=== PATIENT | female | born 1965 | race Caucasian/White ===

== ENCOUNTER → 2017-02-25 | Outpatient (CLI) | payer OTHER ==
--- NOTE | 2017-02-25 10:40 | MM ---
Reason for exam: additional evaluation requested from prior study. Last mammogram was performed 1 year ago. History: Patient is postmenopausal and has history of high-risk lesion on a previous biopsy at age 49. Family history of breast cancer in maternal aunt and breast cancer in mother at age 69. Benign MG pre op needle loc LT of the left breast, February 03, 2015. High risk MG stereo VAD BX LT of the left breast, January 25, 2015. US discontinued breast bx LT of the left breast, January 25, 2015. Benign cyst aspiration of the left breast, 2009. Took hormonal contraceptives for 12 years beginning at age 18. Physical Findings: Nurse did not find any significant physical abnormalities on exam. MG Diagnostic Mammo w CAD MIGUEL Bilateral CC, MLO, and LM view(s) were taken. CC with magnification and LM with magnification view(s) were taken of the right breast. Spot compression CC and spot compression MLO view(s) were taken of the left breast. Prior study comparison: February 20, 2016, bilateral MG diagnostic mammo w CAD MIGUEL. August 01, 2015, left breast MG 3d diag mammo w/cad LT. December 16, 2013, CAD bilateral diagnostic mammogram. The breast tissue is heterogeneously dense. This may lower the sensitivity of mammography. Finding #1: Architectural distortion in the upper outer quadrant of the left breast consistent with known lumpectomy. Finding #2: There are typically benign round, linear, grouped and diffuse/scattered calcifications in both breasts, greater in the right breast. Asymmetric breast tissue in the left breast is stable. Group of indeterminate anterior calcifications middle posterior depth in the right breast. New finding and increase in number of calcifications since February 20, 2016, August 01, 2015, and December 16, 2013. These results were verbally communicated with the patient and result sheet given to the patient on 02/25/17. ASSESSMENT: Suspicious, BI-RAD 4 RECOMMENDATION: Surgical consultation and needle biopsy of the right breast. (not stereo candidate) Called Dr. Seymour with mammographic findings and has scheduled an appointment for the patient for 03/05/17 at 2:[address] Mays. PRELIMINARY REPORT CALLED AND FAXED TO DR. MAYS ON 02/25/17 AT 300/TMP.
== END | disposition home or self-care (01) ==
LOC: RADMAMWWP 08:08
PROVIDERS: ATTEND Internal Medicine
DX: R92.8 Other abnormal and inconclusive findings on diagnostic imaging of breast (principal)

== ENCOUNTER 2017-03-18 06:15 | Day surgery (SDC) | payer OTHER ==
[2017-03-11 15:27] VITALS: BMI 16.7
[~2017-03-18 06:15] MED LIST: ALPRAZolam 0.5 MG TAB PO PRN; DEXAMETHASONE SOD PHOSPHATE 10 MG/ML 1 ML VIAL IV ONE; HEPARIN SODIUM,PORCINE 5,000 UNIT/ML 1 ML VIAL SQ ONE; HYDROmorphone 1 MG/ML 1 ML SYRINGE IVP PRN; LACTATED RINGERS 1,000 ML IV SCH; MIDAZOLAM 2 MG/2 ML VIAL IV PRN; ONDANSETRON 4 MG/2 ML VIAL IVP ONE; SCOPOLAMINE 1.5MG/72HR PATCH TRANSDERM ONE; ceFAZolin 2 GM in SODIUM CHLORIDE 0.9% 100 ML IVPB ONE
[2017-03-18] MEDS ORDERED: LIDOCAINE 1% 20 ML VIAL (10MG/ML) FOR IV START INTRADERMA ONE (06:49)
--- NOTE | 2017-03-18 08:07 | P.GSHP ---
History of Present Illness H&P Date: 03/18/17 Chief Complaint: Abnormal mammogram This a 51-year-old female who presents today for right breast biopsy with needle localization. Her recent mammogram shows abnormal consultation right breast. - Constitutional Constitutional: Reports as per HPI Past Medical History Additional Past Medical History / Comment(s): ABNORMAL MAMMOGRAM,. HX CAT SCRATCH FEVER-LYMPH NODES REMOVED NEAR LT COLLAR BONE History of Any Multi-Drug Resistant Organisms: None Reported Additional Past Surgical History / Comment(s): JAW SURGERY,. GANGLION CYST REMOVED FROM ANKLE. LYMPH NODES NEAR LT COLLAR BONE REMOVED. BX LT BREAST- BENIGN Past Anesthesia/Blood Transfusion Reactions: No Reported Reaction Past Psychological History: No Psychological Hx Reported Smoking Status: Current every day smoker - Past Family History Mother Family Medical History: Cancer, COPD Additional Family Medical History / Comment(s): BREAST Father Family Medical History: Coronary Artery Disease (CAD), CVA/TIA Additional Family Medical History / Comment(s): CABG-4 VESSEL Medications and Allergies Home Medications Medication Instructions Recorded Confirmed Type No Known Home Medications [No 03/11/17 03/11/17 History Known Home Medications] Allergies Allergy/AdvReac Type Severity Reaction Status Date / Time No Known Allergies Allergy Verified 03/11/17 15:21 Surgical - Exam Vital Signs Temp Pulse Resp BP Pulse Ox 97.9 F 78 18 124/78 100 03/18/17 06:44 03/18/17 06:44 03/18/17 06:44 03/18/17 06:44 03/18/17 06:44 - General well developed, no distress - Eyes PERRL - ENT normal pinna - Neck no masses - Respiratory normal expansion - Cardiovascular Rhythm: regular - Abdomen Abdomen: soft, non tender Breast exam is within normal limits. There is no masses palpated. There is no cervical or axillary lymphadenopathy. Assessment and Plan Plan: Abnormal mammogram. We'll perform right breast biopsy with needle localization.
[2017-03-18 08:22] VITALS: RESP 16
[2017-03-18] MEDS ORDERED: LIDOCAINE 1% 20 ML VIAL (10MG/ML) FOR IV START SQ ONE (09:23)
[2017-03-18] MEDS ORDERED: BUPIVACAIN-EPI 0.5%-1:200,000 30 ML VIAL SQ ONE ×2 (09:37→10:03)
[2017-03-18] MEDS ORDERED: fentaNYL (PF) 50 MCG/ML 2 ML AMP ONE (09:41)
[2017-03-18] MEDS ORDERED: LIDOCAINE 1% INJ 10MG/ML (20 ML MDV) ONE (09:41)
[2017-03-18] MEDS ORDERED: PROPOFOL 10 MG/ML 20 ML VIAL IV ONE (09:41)
[2017-03-18] MEDS ORDERED: LACTATED RINGERS 1,000 ML IV ONE (10:16)
--- NOTE | 2017-03-18 10:27 | P.OP ---
Date of Procedure: 03/18/17 Preoperative Diagnosis: Abnormal right mammogram Postoperative Diagnosis: Defer to pathology Procedure(s) Performed: Right breast biopsy with needle localization Implants: Anesthesia: SYEDAA Surgeon: Tang Mays Estimated Blood Loss (ml): 5 Pathology: other (Right breast biopsy) Condition: stable Disposition: PACU Indications for Procedure: Operative Findings: Description of Procedure: The patient's placed the operative table in the supine position. She received IV sedation. She then received a mask anesthetic. Her right breast was prepped and draped usual fashion. The wire was located near the 6 o'clock position. An incision was made the wire site and then using a left cautery Harmonic scissors a core of tissue around the wire was removed. The specimen sent to mammography. The Patient's found to be within the specimen. The wound was inspected for hemostasis. There is no bleeding seen. The skin was closed interrupted 3-0 Monocryl suture. Dermabond was applied. Patient top procedure well and was sent to recovery in stable condition.
[2017-03-18 10:42] VITALS: TEMP 96.8
[2017-03-18 12:20] VITALS: BP 144/80; PULSE 65
--- NOTE | 2017-03-18 12:28 | MM ---
EXAMINATION TYPE: MG pre op needle loc RT, MG surgical specimen RT DATE OF EXAM: 03/18/2017 COMPARISON: 02/25/2017 and 02/20/2016 CLINICAL HISTORY: 51-year-old female abnormal mammogram, new right breast microcalcifications. Patien t not amenable to stereotactic core needle biopsy due to breast size and thickness. TECHNIQUE: Needle localization with wire placement and surgical excision of area of concern in the ri ght breast. FINDINGS: The procedure of needle localization with wire placement and than surgical excision was exp lained to the patient. Benefits, alternatives, and risks were discussed. An informed consent was th en obtained. The procedure was not amenable to the shortest pathway (CC from below) due to size of the breast. Med ial approach was also technically difficult. A lateral approach was utilized. The overlying skin was prepped and draped in usual sterile fashion. Lidocaine buffered with bicarbon ate was used as anesthetic into the skin and subcutaneous tissue up to the level of area of concern. A 9 cm Kopans needle was used. It was placed via a lateral approach under mammographic guidance. S ubsequent 90 degrees mammogram show the needle to be in satisfactory position relative to the targete d area. At this point, wire was placed and the needle was withdrawn. The wire was fixed to patient's skin. Images were marked for surgeon. Due to difficulty in approach, the case was discussed with Dr. Lynda catherine following wire placement. The patient tolerated the procedure well without any immediate complication. The patient was kept in the radiology department for short stay after the procedure and then taken to surgery for surgical e xcision. Targeted calcifications and wire are identified in specimen mammogram. Some additional anterior and superior tissue was included and incorporates the patient's other round and coarse calcifications. The patient was kept in hospital for short stay after the procedure and then discharged home in stabl e condition. IMPRESSION: Successful, uncomplicated needle localization with wire placement and surgical excision of suspicious group of calcifications in the right breast, full pathology results to follow.
== END 2017-03-18 12:19 | disposition home or self-care (01) ==
LOC: OR 06:15
PROVIDERS: ATTEND Surgery
DX: F17.200 Nicotine dependence, unspecified, uncomplicated (principal); N64.89 Other specified disorders of breast
CPT/HCPCS: 81025; 76098; 19281; 19101; J1644; J1100; J0690; J2405; J2001; J3010; J2704; 88307

== ENCOUNTER → 2017-09-16 | Outpatient (CLI) | payer OTHER ==
--- NOTE | 2017-09-16 10:23 | MM ---
Reason for exam: follow-up at short interval from prior study. Last mammogram was performed 7 months ago. History: Patient is postmenopausal and has history of high-risk lesion on a previous biopsy at age 49. Family history of breast cancer in maternal aunt and breast cancer in mother at age 69. Benign MG pre op needle loc RT of the right breast, March 18, 2017. Benign MG pre op needle loc LT of the left breast, February 03, 2015. High risk MG stereo VAD BX LT of the left breast, January 25, 2015. US discontinued breast bx LT of the left breast, January 25, 2015. Benign cyst aspiration of the left breast, 2009. Took hormonal contraceptives for 12 years beginning at age 18. Physical Findings: Nurse did not find any significant physical abnormalities on exam. MG Diagnostic Mammo RT w CAD CC and MLO view(s) were taken of the right breast. Prior study comparison: February 25, 2017, bilateral MG diagnostic mammo w CAD MIGUEL. February 20, 2016, bilateral MG diagnostic mammo w CAD MIGUEL. The breast tissue is heterogeneously dense. This may lower the sensitivity of mammography. No suspicious abnormality. Post surgical change on the right breast. These results were verbally communicated with the patient and result sheet given to the patient on 09/16/17. ASSESSMENT: Benign, BI-RAD 2 RECOMMENDATION: Routine screening mammogram of both breasts in 6 months. Back on schedule.
== END | disposition home or self-care (01) ==
LOC: RADMAMWWP 08:57
PROVIDERS: ATTEND Surgery
DX: R92.8 Other abnormal and inconclusive findings on diagnostic imaging of breast (principal)
CPT/HCPCS: 77065

== ENCOUNTER → 2018-07-07 | Outpatient (CLI) | payer OTHER ==
--- NOTE | 2018-07-07 14:02 | MM ---
Reason for exam: screening (asymptomatic). Last mammogram was performed 10 months ago. History: Patient is postmenopausal and has history of high-risk lesion on a previous biopsy at age 49. Family history of breast cancer in maternal aunt and breast cancer in mother at age 69. Benign MG pre op needle loc RT of the right breast, March 18, 2017. Benign MG pre op needle loc LT of the left breast, February 03, 2015. High risk MG stereo VAD BX LT of the left breast, January 25, 2015. US discontinued breast bx LT of the left breast, January 25, 2015. Benign cyst aspiration of the left breast, 2009. Took hormonal contraceptives for 12 years beginning at age 18. Physical Findings: A clinical breast exam by your physician is recommended on an annual basis and results should be correlated with mammographic findings. MG Screening Mammo w CAD Bilateral CC and MLO view(s) were taken. Prior study comparison: September 16, 2017, right breast MG diagnostic mammo RT w CAD. February 25, 2017, bilateral MG diagnostic mammo w CAD MIGUEL. The breast tissue is heterogeneously dense. This may lower the sensitivity of mammography. Previous mammotome biopsy in the right breast. No significant changes when compared with prior studies. ASSESSMENT: Negative, BI-RAD 1 RECOMMENDATION: Routine screening mammogram of both breasts in 1 year.
== END ==
LOC: RADMAMWWP 07:51
PROVIDERS: ATTEND Internal Medicine
DX: Z12.31 Encounter for screening mammogram for malignant neoplasm of breast (principal)
CPT/HCPCS: 77067

== ENCOUNTER → 2023-10-18 | Outpatient (CLI) | payer BC ==
--- NOTE | 2023-10-21 09:02 | MM ---
Reason for Exam: Screening (asymptomatic). Last mammogram was performed 5 year(s) and 4 month(s) ago. Patient History: Menarche at age 13. First Full-Term at age 30. Late child-bearing (after 30). Postmenopausal. Hormonal Contraceptives, starting at age 18 for 12 years. 2009, Benign Cyst Aspiration on the left side. 03/18/2017, Benign Core Biopsy on the right side. 02/03/2015, Benign Core Biopsy on the left side. 01/25/2015, High risk Core Biopsy on the left side. 01/25/2015, US discontinued breast bx LT on the left side. Maternal aunt had breast cancer. Mother had breast cancer, age 69. Risk Values: Preethi 5 year model risk: 4.0%. NCI Lifetime model risk: 21.5%. Prior Study Comparison: 02/25/2017 Bilateral Diagnostic Mammogram, [facility]. 09/16/2017 Right Diagnostic Mammogram, [facility]. 07/07/2018 Bilateral Screening Mammogram, [facility]. Tissue Density: There are scattered fibroglandular densities. Findings: Analyzed By CAD. Surgical clips in the right breast. There is no suspicious group of microcalcifications or new suspicious mass. Overall Assessment: Benign, BI-RAD 2 Management: Screening Mammogram of both breasts in [address] [facility] will attempt to contact patient to return for supplemental views and ultrasound if indicated. Patient should continue monthly self-breast exams. A clinical breast exam by your physician is recommended on an annual basis. This exam should not preclude additional follow-up of suspicious palpable abnormalities. Note on Preethi scores and lifetime risk: 1. A Preethi score greater than 3% is considered moderate risk. If this is the case, consider specialist referral to assess eligibility for a risk reducing agent. 2. If overall lifetime risk for the development of breast cancer is 20% or higher, the patient may qualify for future screening with alternating mammogram and breast MRI. Electronically signed and approved by: Candido Bello DO
== END | disposition home or self-care (01) ==
LOC: RADMAMWWP 06:49
PROVIDERS: ATTEND Family Medicine
DX: Z12.31 Encounter for screening mammogram for malignant neoplasm of breast (principal); Z78.0 Asymptomatic menopausal state; Z80.3 Family history of malignant neoplasm of breast
CPT/HCPCS: 77063; 77067

== ENCOUNTER → 2023-12-06 | Outpatient (CLI) | payer BC ==
--- NOTE | 2023-12-09 11:41 | CTL ---
Addendum is created to address discrepancy in the body of the report under findings. Previously repor tereza left lower lobe nodule is actually in the left upper lobe. VALDO: Suspicious from 9.8 mm solid nodule with spiculations is seen in the left upper lobe on acquisi tions #3, image 43, series 9. Image 10 series 5.. LLL: None.
== END | disposition home or self-care (01) ==
LOC: RADCTMAIN 08:37
PROVIDERS: ATTEND Family Medicine
DX: Z12.2 Encounter for screening for malignant neoplasm of respiratory organs (principal); F17.210 Nicotine dependence, cigarettes, uncomplicated
CPT/HCPCS: 71271

== ENCOUNTER → 2023-12-17 | Outpatient (CLI) | payer BC ==
--- NOTE | 2023-12-17 16:24 | CT ---
EXAMINATION TYPE: CT chest wo con DATE OF EXAM: 12/17/2023 COMPARISON: 12/06/2023 HISTORY: nodule CT DLP: 152.5 mGycm, Automated exposure control for dose reduction was used. CONTRAST: Performed injected with 0 mL of Isovue 300. TECHNIQUE: Axial images were obtained at 5 mm thick sections. Reconstructed images are reviewed on [employer] computer in the coronal plane. FINDINGS: Portion of the thyroid visualized is normal. There is a spiculated density at the left apex measuring 0.6 x 1.2 cm. Previous measurement 1.0 cm Emphysematous changes are present especially to the upper lung rivera. No enlarged mediastinal or hilar adenopathy is evident. The ascending aorta diameter at the level o f the main pulmonary artery is 2.7 cm. The main pulmonary artery diameter at the bifurcation is 2.6 cm. Coronary artery calcifications present. Minimal pericardial effusion is present. Limited CT sections are obtained through the upper abdomen. Calcified knox within cysts of the splee n are present. IMPRESSION: 1. 0.6 x 1.2 cm nodule left apex may be slightly increased in size over the interval. PET/CT recommen ded for additional workup. Findings are suspicious for neoplasm. 2. Emphysematous changes.
== END | disposition home or self-care (01) ==
LOC: RADCTMAIN 15:23
PROVIDERS: ATTEND Family Medicine
DX: J43.9 Emphysema, unspecified (principal); R93.89 Abnormal findings on diagnostic imaging of other specified body structures; R91.1 Solitary pulmonary nodule
CPT/HCPCS: 71250

== ENCOUNTER → 2024-01-24 | Outpatient (CLI) | payer BC ==
--- NOTE | 2024-01-25 03:52 | US ---
EXAMINATION TYPE: US abdomen complete DATE OF EXAM: 01/24/2024 COMPARISON: NONE CLINICAL INDICATION: Female, 58 years old with history of D69.49 OTHER PRIMARY THROMBOCYTOPENIA; Abno rmal labs. TECHNIQUE: Multiple sonographic images of the abdomen are obtained. FINDINGS: EXAM MEASUREMENTS: Liver Length: 15.9 cm Gallbladder Wall: 0.2 cm CBD: 0.4 cm Spleen: 11.0 cm Right Kidney: 10.1 x 4.3 x 4.4 cm Left Kidney: 10.1 x 3.9 x 4.8 cm Pancreas: wnl Liver: wnl Gallbladder: Echogenic focus adjacent to wall with ring down = 2.7 mm. Evidence for sonographic Guerrero's sign: neg CBD: wnl Spleen: cystic appearing lesion = 0.8 x 0.8 x 0.9 cm . Posterior acoustic enhancement identified. Right Kidney: No hydronephrosis or masses seen Left Kidney: upper pole hypoechoic lesion, limited due to gas = 1.1 x 1.1 x 1.1 cm Upper IVC: wnl Abd Aorta: No AAA visualized, atherosclerotic changes seen The liver is homogenous. The intrahepatic portion of the IVC and proximal abdominal aorta are within normal limits. Atherosclerotic changes of the abdominal aorta. There is no evidence of cholelithiasi s. Adenomyomatosis demonstrated. Common bile duct is unremarkable. The visualized portions of the pa ncreas are homogenous. The spleen is normal in size with a subcentimeter cyst identified. Kidneys ar e symmetric and free of hydronephrosis. Hypoechoic left upper pole renal 1.1 cm lesion consistent wit h a cyst on CT. Evaluation is limited due to overlying bowel gas. IMPRESSION: 1. No ultrasound evidence for an acute process. 2. 1.1 cm left renal cyst. 3. Adenomyomatosis of the gallbladder.
== END | disposition home or self-care (01) ==
LOC: RADUSWWP 07:48
PROVIDERS: ATTEND Internal Medicine Hematology & Oncology
DX: D13.5 Benign neoplasm of extrahepatic bile ducts (principal); N28.1 Cyst of kidney, acquired; D69.49 Other primary thrombocytopenia; I10 Essential (primary) hypertension; D69.59 Other secondary thrombocytopenia; R79.9 Abnormal finding of blood chemistry, unspecified
CPT/HCPCS: 76700

== ENCOUNTER → 2024-01-26 | Outpatient (CLI) | payer BC ==
--- NOTE | 2024-01-26 19:08 | PE ---
EXAMINATION TYPE: PET CT fusion skull to thigh DATE OF EXAM: 01/26/2024 CLINICAL INDICATION:Female, 58 years old with history of R91.1 NODULE; TECHNIQUE: Following the intravenous administration of 12.45 mCi of F-18 FDG, whole body images are performed from the skull base to the midthigh. Images are reviewed on the computer in the coronal, axial, and sagittal planes. Reconstructed rotating images are created on independent workstation and reviewed on the computer. A non-contrast CT is performed in conjunction with the PET scan. Glucose level 92 mg/dL CT DLP: 321.18 mGycm, Automated exposure control for dose reduction was used. COMPARISON: CT 12/17/2023, PET/CT None, FINDINGS: Mediastinal SUV mean is 1.6. Hepatic parenchyma SUV mean is 2.1. SKULL BASE AND NECK: No suspicious radiotracer activity. CHEST, MEDIASTINUM, AND HILAR REGION: Left upper lung 9 mm pulmonary nodule with mildly elevated FDG activity. Max SUV 1.1 ABDOMEN AND PELVIS: No suspicious radiotracer activity. MUSCULOSKELETAL STRUCTURES: No suspicious radiotracer activity. OTHER CT: Atherosclerosis of the carotid bifurcations. Mild coronary artery calcific patient's. Perip herally calcified lesion in the spleen and represent traumatic pseudocyst. Moderate centrilobular emp hysema.. IMPRESSION: Left upper lobe pulmonary nodule measuring 9 mm with FDG levels below background levels. Surveillance CT chest in 3 months recommended to ensure stability. Findings could represent scarring versus early neoplastic process.
== END | disposition home or self-care (01) ==
LOC: RADPETMAIN 07:48
PROVIDERS: ATTEND Internal Medicine Critical Care Medicine
DX: R91.1 Solitary pulmonary nodule (principal)
CPT/HCPCS: 78815; A9552

== ENCOUNTER → 2024-09-24 | Outpatient (CLI) | payer BC ==
--- NOTE | 2024-09-24 16:01 | CT ---
CT thorax with contrast. HISTORY: Pulmonary nodule Comparison: 12/17/2023. TECHNIQUE: Multiple axial images are obtained following the uneventful administration of IV contrast. FINDINGS: There are marked emphysematous changes. There is a stable 11 to 12 mm spiculated nodule in the left lung apex. There is a stable 2 to 3 mm no dule in the subpleural parenchymal lung of the left lung base laterally. There is no new or suspicious lung nodule or mass. There is no airspace consolidation. There is no pleural effusion or pneumothorax. The great vessels of the chest and heart are normal in size. There is no mediastinal, hilar or axillary adenopathy. Limited scanning through the upper abdomen reveals a stable cystic mass with rim calcification in the spleen. No focal osseous lesions are seen. IMPRESSION: 1. Marked emphysematous changes. 2. Stable left lung nodules as described above with no new or suspicious lung mass or nodule. 3. No acute cardiopulmonary disease. 4. Benign stable cystic mass within the spleen. [facility], , 09/24/2024 3:59 PM
== END | disposition home or self-care (01) ==
LOC: RADCTMAIN 14:58
PROVIDERS: ATTEND Internal Medicine Critical Care Medicine
DX: R91.8 Other nonspecific abnormal finding of lung field (principal)
CPT/HCPCS: 71260; Q9967